=== PATIENT | female | born 2000 | race Caucasian/White ===

== ENCOUNTER → 2020-12-10 08:56 | Outpatient (CLI) | payer OTHER, SELFPAY ==
--- NOTE | 2020-12-10 09:01 | XR_ITS ---
PROCEDURE: XR KNEE RT 4V CLINICAL INDICATION: RT knee pain COMPARISON: No exams were available for comparison FINDINGS: No fracture or dislocation. No lytic or blastic change. There is normal mineralization. The joint spaces are well-preserved. No significant degenerative/arthritic changes. No erosive changes evident. Other findings:None. IMPRESSION: No acute findings. Dictated by: Alexandre Baxter MD 12/10/2020 13:23 Alexandre Baxter MD in [place] 12/10/2020 13:23
== END ==
PROVIDERS: PCP Family Medicine; Visit Provider Orthopaedic Surgery
DX: M25.561 Pain in right knee (principal)
CPT/HCPCS: 73564

== ENCOUNTER → 2020-12-20 07:42 | Outpatient (CLI) | payer OTHER, SELFPAY ==
--- NOTE | 2020-12-20 07:43 | MR_ITS ---
PROCEDURE: MR KNEE RT WO CON CLINICAL INDICATION: RT knee pain Pt c/o medial posterior rt knee pain since she was walking and heard a pop in October of this year. Pt states she tore her meniscus 4 years ago and it never got better. Pt states she has never had surgery on the rt knee. Prior rt knee x-ray done 12/10/20. COMPARISON: CR XR KNEE RT 4V from 12/10/2020 TECHNIQUE: Routine multiplanar multi echo sequences are performed without gadolinium enhancement. FINDINGS: Cruciate ligaments appear intact. There is a moderate degree of motion artifact on the coronal images. The collateral ligaments appear intact. The posterior horn the medial meniscus has an abnormal shape with rounding off the posterior and medial edge of the meniscus consistent with a meniscal tear. This could be old. The patellar tendon, quadriceps tendon, and patellar cartilage are unremarkable. Patellofemoral ligaments appear intact. There is minimal lateral subluxation of the patella by approximately 5 mm. There is a small knee joint effusion. No bone bruise or fracture. IMPRESSION: There is rounding off of the posterior and inferior aspect of the medial meniscus suggesting a meniscal tear which could be chronic. Small knee joint effusion. Dictated by: Alexandre Baxter MD 12/22/2020 06:37 Alexandre Baxter MD in [place] 12/22/2020 06:37
== END ==
PROVIDERS: PCP Family Medicine; Visit Provider Orthopaedic Surgery
DX: M25.561 Pain in right knee (principal); G89.29 Other chronic pain; S89.91XA Unspecified injury of right lower leg, initial encounter
CPT/HCPCS: 73721